=== PATIENT | female | born 1950 | race Caucasian/White ===

== ENCOUNTER → 2018-09-21 | Outpatient (CLI) | payer OTHER ==
--- NOTE | 2018-09-21 12:12 | CARD ---
MR#: [id number] Date of Study: 09/21/2018 Ordering Physician: RAUL GONZALEZ, Referring Physician: RAUL GONZALEZ Tech: Shana Jain RDCS APPROVED REPORT EXAM: Two-dimensional and M-mode echocardiogram with Doppler and color Doppler. Other Information Quality : AverageHR: 78bpm Rhythm : NSR INDICATION Edema 2D DIMENSIONS RVDd2.6 (2.9-3.5cm)Left Atrium(2D)3.8 (1.6-4.0cm) IVSd0.9 (0.7-1.1cm)Aortic Root(2D)2.6 (2.0-3.7cm) LVDd4.8 (3.9-5.9cm)LVOT Diameter1.9 (1.8-2.4cm) PWd1.1 (0.7-1.1cm)LVDs3.1 (2.5-4.0cm) FS (%) 34.7 %SV67.0 ml LVEF(%)63.8 (>50%) M-Mode DIMENSIONS Left Atrium(MM)3.78 (2.5-4.0cm)Aortic Root2.81 (2.2-3.7cm) Aortic Valve AoV Peak Javi.171.6cm/sAoV VTI34.6cm AO Peak GR.11.8mmHgLVOT Peak Javi.106.3cm/s AO Mean GR.6mmHgAVA (VMAX)1.77cm2 LUKE (VTI)1.90cm2 Mitral Valve MV E Tvgsrjdm08.2cm/sMV DECEL RCNT420kr MV A Wugpzzlu230.3cm/sE/A Ratio0.8 Pulmonary Valve PV Peak Rbuvjfsg36.7cm/s Tricuspid Valve TR P. Uqcbaftt051fq/sRAP IIGKWVRJ2rvXf TR Peak Gr.99vzWwDIUO64dpVs LEFT VENTRICLE The left ventricle is normal size. There is normal left ventricular wall thickness. The left ventricu lar systolic function is normal. The Ejection Fraction is 60-65%. There is normal LV segmental wall m otion. Transmitral Doppler flow pattern is Grade I-abnormal relaxation pattern. RIGHT VENTRICLE The right ventricle is normal size. There is normal right ventricular wall thickness. The right ventr icular systolic function is normal. ATRIA The left atrium size is normal. The right atrium size is normal. The interatrial septum is intact wit h no evidence for an atrial septal defect or patent foramen ovale as noted on 2-D or Doppler imaging. AORTIC VALVE The aortic valve is normal in structure and function. The aortic valve is trileaflet. Doppler and Col or Flow revealed no significant aortic regurgitation. There is no significant aortic valvular stenosi s. MITRAL VALVE The mitral valve is normal in structure and function. There is no evidence of mitral valve prolapse. There is no mitral valve stenosis. Doppler and Color-flow revealed trace mitral regurgitation. TRICUSPID VALVE The tricuspid valve is normal in structure and function. Doppler and Color Flow revealed trace tricus pid regurgitation. The PA pressure was estimated at 25 mmHg. There is no tricuspid valve prolapse or vegetation. There is no tricuspid valve stenosis. PULMONIC VALVE The pulmonic valve is not well visualized. GREAT VESSELS The aortic root is normal in size. The ascending aorta is normal in size. The IVC is normal in size a nd collapses >50% with inspiration. PERICARDIAL EFFUSION There is no evidence of significant pericardial effusion. Critical Notification Critical Value: No <Conclusion> The left ventricular systolic function is normal. The Ejection Fraction is 60-65%. There is normal LV segmental wall motion. Transmitral Doppler flow pattern is Grade I-abnormal relaxation pattern. Trace mitral regurgitation. Trace tricuspid regurgitation. The PA pressure was estimated at 25 mmHg. There is no evidence of significant pericardial effusion. Signed by : Raul Gonzalez, Electronically Approved : 09/21/2018 12:11:36
== END | disposition home or self-care (01) ==
LOC: ECHO 11:07
PROVIDERS: ATTEND Internal Medicine Cardiovascular Disease
DX: R60.9 Edema, unspecified (principal)
CPT/HCPCS: 93306

== ENCOUNTER → 2019-06-07 | Outpatient (CLI) | payer MEDICARE ==
--- NOTE | 2019-06-08 15:27 | SLEEP ---
DATE OF STUDY: 06/07/2019 SLEEP STUDY The patient is a 69-year-old who weighs 207 pounds with a BMI of 38. The patient's Conklin score is 15. The patient was referred for CPAP titration study. Results of diagnostic study were not available. During the night study, the patient spent 389 minutes in bed and slept for 368 minutes with a sleep efficiency of 95%. Sleep latency was 1 minute with absent REM sleep. Sleep architecture showed normal stage 1 sleep, increased stage 2 sleep, normal slow wave and absent REM sleep. EKG monitoring revealed normal sinus rhythm. Average heart rate 75 beats per minute. PLMS were seen at index of 12 per hour and 3 per hour caused EEG arousals. The patient was started on CPAP at 5 cm water and titrated up to 13 cm water. At the final pressure, the patient slept for 85 minutes. The patient had supine sleep, but no REM sleep seen. The patient's AHI was reduced to 0 per hour and oxygen saturation remained above 91%. The patient used medium size full face mask. IMPRESSION: 1. Sleep apnea diagnosed previously. 2. Mild periodic limb movement without any significant EEG arousals. This does not need to be treated. RECOMMENDATIONS: 1. CPAP at 13 cm water completely eliminated the patient's sleep apnea and should be used on a nightly basis. 2. Follow up in 4-6 weeks to assess compliance with CPAP and to document clinical improvement. 3. Weight loss is advised. 4. Avoid ZOOKEEPER depressants. 5. Cautioned regarding driving until symptoms of sleep apnea resolve with the use of CPAP. KANA TEJEDA MD DR: AYDEE/karis JOB#: [id number] / [id number] Diane Lynn DO
== END | disposition home or self-care (01) ==
LOC: RT 19:20
PROVIDERS: ATTEND Internal Medicine Critical Care Medicine
DX: G47.30 Sleep apnea, unspecified (principal); G47.61 Periodic limb movement disorder
CPT/HCPCS: 95811

== ENCOUNTER → 2020-02-01 | Outpatient (CLI) | payer MEDICARE ==
--- NOTE | 2020-02-01 15:47 | CARD ---
MR#: [id number] Date of Study: 02/01/2020 Ordering Physician: RAUL RAO, Referring Physician: RAUL RAO, Tech: Claritza Lowery APPROVED REPORT EXAM: Two-dimensional and M-mode echocardiogram with Doppler and color Doppler. Other Information Quality : AverageHR: 92bpm Technically limited study due to body habitus. INDICATION Congestive Heart Failure RISK FACTORS Hypertension Diabetes 2D DIMENSIONS RVDd2.6 (2.9-3.5cm)Left Atrium(2D)3.7 (1.6-4.0cm) IVSd0.9 (0.7-1.1cm)Aortic Root(2D)3.0 (2.0-3.7cm) LVDd5.1 (3.9-5.9cm)LVOT Diameter1.9 (1.8-2.4cm) PWd1.0 (0.7-1.1cm)LVDs3.0 (2.5-4.0cm) FS (%) 40.7 %SV88.7 ml Aortic Valve AoV Peak Javi.215.7cm/sAoV VTI34.0cm AO Peak GR.18.6mmHgLVOT Peak Javi.123.0cm/s LVOT VTI 16.49cmAO Mean GR.10mmHg LUKE (VMAX)1.31qg7HUR (VTI)1.42cm2 Mitral Valve MV E Ywrlvjzv46.0cm/sMV DECEL GAJX153jn MV A Pyzcuhvr493.1cm/sMV KDG14lb E/A Ratio0.8MVA (PHT)2.89cm2 TDI E/Lateral E'10.0E/Medial E'10.3 Pulmonary Valve PV Peak Ktwnqwhj43.8cm/sPV Peak Grad.4mmHg Tricuspid Valve TR P. Krrmyntc270ou/sRAP QUIYNIDH5llRb TR Peak Gr.75ctXcELCA12iwJm Pulmonary Vein S1 Amknjuxa69.2cm/sD2 Dykyyatt35.1cm/s PVa aetshbhv246pscc LEFT VENTRICLE The left ventricle is normal size. There is borderline concentric left ventricular hypertrophy. The l eft ventricular systolic function is normal and the ejection fraction is within normal range. The Eje ction Fraction is 55-60%. There is normal LV segmental wall motion. Transmitral Doppler flow pattern is Grade I-abnormal relaxation pattern. RIGHT VENTRICLE The right ventricle is normal size. There is normal right ventricular wall thickness. The right ventr icular systolic function is normal. ATRIA The left atrium size is normal. The right atrium size is normal. The atrial septum is mildly aneurysm al. AORTIC VALVE The aortic valve is thickened but opens well. Doppler and Color Flow revealed no significant aortic r egurgitation. There is no significant aortic valvular stenosis. Calculated aortic valve area is 1.75 cm2 with maximum pressure gradient of 20 mmHg and mean pressure gradient of 10 mmHg. MITRAL VALVE The mitral valve is normal in structure and function. There is no evidence of mitral valve prolapse. There is no mitral valve stenosis. Doppler and Color-flow revealed trace to mild mitral regurgitation . TRICUSPID VALVE The tricuspid valve is normal in structure and function. Doppler and Color Flow revealed trace tricus pid regurgitation with an estimated PAP of 20 mmHg. There is no tricuspid valve stenosis. PULMONIC VALVE The pulmonic valve is not well visualized. Doppler and Color Flow revealed trace pulmonic valvular re gurgitation. GREAT VESSELS The aortic root is normal in size. The ascending aorta is mildly dilated measuring 3.5 cm The IVC was not well visualized. PERICARDIAL EFFUSION There is no evidence of significant pericardial effusion. Critical Notification Critical Value: No <Conclusion> The left ventricle is normal size. The left ventricular systolic function is normal and the ejection fraction is within normal range. The Ejection Fraction is 55-60%. There is borderline concentric left ventricular hypertrophy. Doppler and Color Flow revealed no significant aortic regurgitation. There is no significant aortic valvular stenosis. Calculated aortic valve area is 1.75 cm2 with maximum pressure gradient of 20 mmHg and mean pressure gradient of 10 mmHg. Doppler and Color-flow revealed trace to mild mitral regurgitation. Doppler and Color Flow revealed trace tricuspid regurgitation with an estimated PAP of 20 mmHg. The ascending aorta is mildly dilated measuring 3.5 cm Signed by : Eliecer Álvarez MD Electronically Approved : 02/01/2020 15:46:55
== END ==
LOC: ECHO 11:02
PROVIDERS: ATTEND Internal Medicine Cardiovascular Disease
DX: I34.0 Nonrheumatic mitral (valve) insufficiency (principal); I11.9 Hypertensive heart disease without heart failure
CPT/HCPCS: 93306